=== PATIENT | female | born 1985 | race Caucasian/White ===

== ENCOUNTER 2018-10-10 05:19 | Day surgery (SDC) | payer BC ==
[2018-10-10] MEDS: BUPIVACAINE 0.25% (MPF) 30 ML INJ
[2018-10-10] MEDS ORDERED: CEFAZOLIN 2 GM/50 ML (PMX) 50 ML IVPB (06:00)
[2018-10-10] MEDS: SOD CHLORIDE 0.9% 1,000 ML IV (06:17)
[2018-10-10 06:24] LABS: ADD MAN DIFF? NO
[2018-10-10 06:43] LABS: BASOPHIL # 0.1 10^3/ul (0.0-0.1); BASOPHILS % 1.2 % (0.0-2.0); EOSINOPHILS # 0.3 10^3/ul (0.0-0.5); EOSINOPHILS % 4.3 % (0.0-7.0); HEMATOCRIT 35.9 % (37.0-47.0); HEMOGLOBIN 11.4 g/dl (12.0-16.0); LYMPHOCYTES # 1.5 10^3/ul (0.8-2.9); LYMPHOCYTES % 20.8 % (15.0-51.0); MEAN CORPUSCULAR HEMOGLOBIN 22.8 pg (29.0-33.0); MEAN CORPUSCULAR HGB CONC 31.8 g/dl (32.0-37.0); MEAN CORPUSCULAR VOLUME 71.9 fl (82.0-101.0); MEAN PLATELET VOLUME 11.3 fl (7.4-10.4); MONOCYTE # 0.7 10^3/ul (0.3-0.9); MONOCYTES % 9.9 % (0.0-11.0); NEUTROPHIL # 4.7 10^3/ul (1.6-7.5); NEUTROPHILS % 63.5 % (39.0-77.0); PLATELET COUNT 289 10^3/UL (140-415); RED BLOOD COUNT 4.99 10^6/ul (4.20-5.40); RED CELL DISTRIBUTION WIDTH 15.8 % (11.5-14.5)
[2018-10-10 06:43] LABS: WHITE BLOOD COUNT 7.4 10^3/ul (4.8-10.8)
[2018-10-10 07:17] LABS: INR 1.02; PROTIME 13.5 Sec (11.9-14.9); PT RATIO 1.1
[2018-10-10 07:21] LABS: ALANINE AMINOTRANSFERASE 29 IU/L (13-69); ALBUMIN/GLOBULIN RATIO 1.25; ALKALINE PHOSPHATASE 84 IU/L (42-121); ANION GAP 13 (5-13); ASPARTATE AMINO TRANSFERASE 18 IU/L (15-46); BILIRUBIN,INDIRECT 0.5 mg/dl (0-1.1); BILIRUBIN,TOTAL 0.5 mg/dl (0.2-1.3); BLOOD UREA NITROGEN 9 mg/dl (7-20); CALCIUM 8.9 mg/dl (8.4-10.2); CARBON DIOXIDE 24 mmol/L (21-31); CHLORIDE 106 mmol/L (97-110); CREATININE 0.74 mg/dl (0.44-1.00); Estimated GFR > 60 mL/min (>60); GLUCOSE 98 mg/dl (70-220); SODIUM 143 mmol/L (135-144); TOTAL PROTEIN 7.2 g/dl (6.1-8.1)
[2018-10-10] MEDS ORDERED: LIDOCAINE 2% (SDV) 5 ML INJ (07:29)
[2018-10-10] MEDS ORDERED: SUCCINYLCHOLINE CHLORIDE 100 MG/5 ML SYG IV (07:29)
[2018-10-10] MEDS ORDERED: SEVOFLURANE 15 MIN (07:29)
[2018-10-10] MEDS ORDERED: GLYCOPYRROLATE 0.4 MG INJ ×2 (07:29→08:16)
[2018-10-10] MEDS ORDERED: MEPERIDINE 100 MG INJ (07:29)
[2018-10-10] MEDS ORDERED: PROPOFOL 20 ML (07:29)
[2018-10-10] MEDS ORDERED: NEOSTIGMINE 3 MG/3 ML SYRINGE ×2 (07:29→08:16)
[2018-10-10] MEDS ORDERED: ROCURONIUM 50 MG INJ (07:29)
[2018-10-10] MEDS ORDERED: METOCLOPRAMIDE 10 MG INJ (08:15)
[2018-10-10] MEDS ORDERED: ONDANSETRON 4 MG INJ (08:15)
[2018-10-10] MEDS ORDERED: HYDROmorphONE 1 MG/5 ML IV SYRINGE IV ×2 (08:37→09:00)
[2018-10-10] MEDS: HYDROmorphONE 1 MG/5 ML IV SYRINGE IV ×2 (08:50→08:56)
[2018-10-10] MEDS: MEPERIDINE 25 MG INJ IV (08:51)
[2018-10-10] MEDS: ONDANSETRON 4 MG INJ IV (08:51)
[2018-10-10] MEDS ORDERED: OXYCODONE/ACETAMINOPHEN (5/325) TAB PO ×2 (09:00)
[2018-10-10] MEDS ORDERED: METOCLOPRAMIDE 10 MG INJ IV (09:00)
[2018-10-10] MEDS ORDERED: HYDROCODONE/APAP (5/325) TAB PO (09:00)
[2018-10-10] MEDS ORDERED: MIDAZOLAM 1 MG/ML 2 ML INJ IV (09:00)
[2018-10-10] MEDS ORDERED: DIPHENHYDRAMINE 50 MG INJ IV (09:00)
== END 2018-10-10 10:14 | disposition home or self-care (01) ==
LOC: SDS 05:19
DX: K80.10 Calculus of gallbladder with chronic cholecystitis without obstruction (principal)
CPT/HCPCS: 47562; 80053; 84703; 85025; 85610; 85730; 88304